=== PATIENT | male | born 1990 | race Caucasian/White ===

== ENCOUNTER 2021-12-08 08:07 | Emergency (ER) | payer MEDICAID, OTHER ==
[~2021-12-08] VITALS: Ht 172.7 cm; Wt 75.0 kg
[2021-12-08 08:24] VITALS: BP 147/77
== END 2021-12-08 09:56 | disposition home or self-care (01) ==
LOC: EMS 08:11
DX: S62.616A Displaced fracture of proximal phalanx of right little finger, initial encounter for closed fracture (principal); X58.XXXA Exposure to other specified factors, initial encounter; Y93.89 Activity, other specified; Y92.89 Other specified places as the place of occurrence of the external cause; Y99.0 Civilian activity done for income or pay
CPT/HCPCS: 99283

== ENCOUNTER 2022-03-17 15:07 | Emergency (ER) | payer MEDICAID, OTHER ==
[~2022-03-17] VITALS: Ht 167.6 cm; Wt 80.0 kg
[2022-03-17 16:10] VITALS: BP 128/84
[2022-03-17] MEDS ORDERED: HYDR-4527 PO (16:46)
[2022-03-17] MEDS ORDERED: HYDR30CR39 TP (16:46)
== END 2022-03-17 16:57 | disposition home or self-care (01) ==
LOC: EMS 15:07
DX: L25.9 Unspecified contact dermatitis, unspecified cause (principal)
CPT/HCPCS: 99283; Z7502